=== PATIENT | male | born 1990 | race Caucasian/White ===

== ENCOUNTER → 2020-01-08 11:39 | Outpatient (CLI) | payer BC, SELFPAY ==
[2020-01-11 07:35] LABS: COVID19 Sendout Not Detected (Not Detected)
== END ==
PROVIDERS: Visit Provider Physician Assistant
DX: Z03.818 Encounter for observation for suspected exposure to other biological agents ruled out (principal)
CPT/HCPCS: 87635

== ENCOUNTER → 2022-11-09 13:16 | Outpatient (CLI) | payer OTHER, MEDICAID, SELFPAY ==
--- NOTE | 2022-11-09 13:53 | DI.RAD.S_ITS ---
PROCEDURE: XR CHEST 2V INDICATIONS: Shortness of breath TECHNIQUE: 2 views of the chest were acquired. COMPARISON: None. FINDINGS: Surgical changes and devices: None. Lungs and pleura: Lungs are clear. No pleural effusions or pneumothorax. Mediastinum: Mediastinal contours are normal. Heart size is normal. Bones and chest wall: No suspicious bony abnormalities. Soft tissues appear unremarkable. IMPRESSION: No acute cardiopulmonary findings. Dictated by: Patria Dodson M.D. on 11/09/2022 at 14:36 Approved by: Patria Dodson M.D. on 11/09/2022 at 14:36
[2022-11-09 14:11] LABS: COVID-19 CEPHEID 4-PLEX PCR Negative (Negative); Influenza A - CEPHEID Flu A NEGATIVE (NEGATIVE); Influenza B - CEPHEID Flu B NEGATIVE (NEGATIVE); Respiratory Syncytial Virus Negative (Negative)
== END ==
PROVIDERS: Referring Provider Registered Nurse; Visit Provider Registered Nurse
DX: J06.9 Acute upper respiratory infection, unspecified (principal); R06.02 Shortness of breath
CPT/HCPCS: 0241U; 71046